=== PATIENT | female | born 1935 | race Two or more races ===

== ENCOUNTER 2021-03-12 09:55 | Emergency (ER) | payer OTHER ==
[~2021-03-12] VITALS: Ht 149.9 cm; Wt 45.4 kg
[2021-03-12] MEDS ORDERED: DIOVAN160 M1 (10:20)
[2021-03-12] MEDS ORDERED: CALTRATE 600+D1 EAC1 (10:20)
[2021-03-12] MEDS ORDERED: GLIMEPIRIDE2 MG (10:21)
[2021-03-12] MEDS ORDERED: LEVOFLOXACIN500 MG PO (17:33)
== END 2021-03-12 19:46 | disposition home or self-care (01) ==
LOC: ER 09:55
DX: R13.19 Other dysphagia (principal); N39.0 Urinary tract infection, site not specified